=== PATIENT | male | born 2000 | race American Indian/Alaskan Native ===

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

== ENCOUNTER 2019-04-27 17:52 | Emergency (ER) | payer SELFPAY ==
[2019-04-27] MEDS ORDERED: IBUPROFEN 600 MG TAB PO ONE (18:01)
--- NOTE | 2019-04-27 18:03 | Emergency Department Report ---
Blank Doc - Documentation Documentation: 19-year-old male that presents with sore throat, URI symptoms and fever. This initial assessment/diagnostic orders/clinical plan/treatment(s) is/are subject to change based on patient's health status, clinical progression and re- assessment by fellow clinical providers in the ED. Further treatment and workup at subsequent clinical providers discretion. Patient/guardians urged not to elope from the ED as their condition may be serious if not clinically assessed and managed. Initial orders include: 1- Patient sent to [facility] for further evaluation and treatment 2- CXR 3- strep 4-motrin-RN to repeat vitals
--- NOTE | 2019-04-27 18:33 | XRay Report ---
CHEST 2 VIEWS INDICATION / CLINICAL INFORMATION: cough. COMPARISON: None available. FINDINGS: SUPPORT DEVICES: None. HEART / MEDIASTINUM: No significant abnormality. LUNGS / PLEURA: No significant pulmonary or pleural abnormality. No pneumothorax. ADDITIONAL FINDINGS: No significant additional findings. IMPRESSION: 1. No acute findings. Signer Name: Raymon Mcnulty MD Signed: 04/27/2019 6:28 PM Workstation Name: [id number]
[2019-04-27 18:39] VITALS: BP 109/58
--- NOTE | 2019-04-27 19:17 | Emergency Department Report ---
ED ENT HPI - General Chief complaint: Sore Throat Stated complaint: RUNNING A FEVER 2DAYS Time Seen by Provider: 04/27/19 18:01 Source: patient Mode of arrival: Ambulatory Limitations: No Limitations - History of Present Illness Initial comments: 19-year-old -[place] male presents to the emergency room complaining of sore throat fever and chills 2 days. Patient reports to the taken Advil which she reports only lasts about an hour. Patient reports it is worse with swallowing. Patient denies any past medical history currently takes no medi cations on a daily basis and has no known drug allergies MD complaint: sore throat Onset/Timin -: days(s) Location: throat Severity: severe Quality: burning, stabbing, sharp Consistency: constant Improves with: none Worsens with: swallowing Associated Symptoms: fever, pain with swallowing, sore throat - Related Data Previous Rx's Medication Instructions Recorded Last Taken Type Cyclobenzaprine [Flexeril] 10 mg PO QHS PRN #7 tablet 10/10/17 Unknown Rx Ibuprofen [Motrin] 600 mg PO Q8H PRN #30 tablet 10/10/17 Unknown Rx methOCARBAMOL [Robaxin TAB] 500 mg PO BID #10 tab 10/15/17 Unknown Rx Ibuprofen [Motrin 600 MG tab] 600 mg PO Q8H PRN #30 tablet 04/27/19 Unknown Rx Penicillin Vk [Veetids TAB] 250 mg PO QID #40 tablet 04/27/19 Unknown Rx Allergies Allergy/AdvReac Type Severity Reaction Status Date / Time strawberry Allergy Hives Verified 10/15/17 10:03 ED Dental HPI - General Chief complaint: Sore Throat Stated complaint: RUNNING A FEVER 2DAYS Time Seen by Provider: 04/27/19 18:01 Source: patient Mode of arrival: Ambulatory Limitations: No Limitations - Related Data Previous Rx's Medication Instructions Recorded Last Taken Type Cyclobenzaprine [Flexeril] 10 mg PO QHS PRN #7 tablet 10/10/17 Unknown Rx Ibuprofen [Motrin] 600 mg PO Q8H PRN #30 tablet 10/10/17 Unknown Rx methOCARBAMOL [Robaxin TAB] 500 mg PO BID #10 tab 10/15/17 Unknown Rx Ibuprofen [Motrin 600 MG tab] 600 mg PO Q8H PRN #30 tablet 04/27/19 Unknown Rx Penicillin Vk [Veetids TAB] 250 mg PO QID #40 tablet 04/27/19 Unknown Rx Allergies Allergy/AdvReac Type Severity Reaction Status Date / Time strawberry Allergy Hives Verified 10/15/17 10:03 ED Review of Systems ROS: Stated complaint: RUNNING A FEVER 2DAYS Other details as noted in HPI Comment: All other systems reviewed and negative ED Past Medical Hx - Past Medical History Previous Medical History?: No - Surgical History Past Surgical History?: No - Social History Smoking Status: Never Smoker Substance Use Type: None - Medications Home Medications: Home Medications Medication Instructions Recorded Confirmed Last Taken Type Cyclobenzaprine [Flexeril] 10 mg PO QHS PRN #7 tablet 10/10/17 Unknown Rx Ibuprofen [Motrin] 600 mg PO Q8H PRN #30 tablet 10/10/17 Unknown Rx methOCARBAMOL [Robaxin TAB] 500 mg PO BID #10 tab 10/15/17 Unknown Rx Ibuprofen [Motrin 600 MG tab] 600 mg PO Q8H PRN #30 tablet 04/27/19 Unknown Rx Penicillin Vk [Veetids TAB] 250 mg PO QID #40 tablet 04/27/19 Unknown Rx ED Physical Exam - General Limitations: No Limitations General appearance: alert, in no apparent distress - Head Head exam: Present: atraumatic, normocephalic - Eye Eye exam: Present: normal appearance - ENT ENT exam: Present: mucous membranes moist - Expanded ENT Exam Expanded Throat exam: Positive: tonsillar erythema, tonsillomegaly, tonsillar exudate - Neck Neck exam: Present: tenderness, lymphadenopathy - Respiratory Respiratory exam: Present: normal lung sounds bilaterally. Absent: respiratory distress - Neurological Exam Neurological exam: Present: alert, oriented X3, normal gait - Psychiatric Psychiatric exam: Present: normal affect, normal mood - Skin Skin exam: Present: warm, dry, intact, normal color. Absent: rash ED Course Vital Signs 04/27/19 04/27/19 18:36 18:37 Temperature 102.3 F H Pulse Rate 101 H Respiratory 18 18 Rate Blood Pressure 109/58 O2 Sat by Pulse 100 Oximetry ED Medical Decision Making - Radiology Data Radiology results: report reviewed Patient: KURT GUEVARA MR#: [id number] : 2000 Acct:[id number] Age/Sex: 19 / M ADM Date: 04/27/19 Loc: ED Attending Dr: Ordering Physician: GIOVANI SALGADO NP Date of Service: 04/27/19 Procedure(s): XR chest routine 2V Accession Number(s): [id number] cc: GIOVANI SALGADO NP Fluoro Time In Minutes: CHEST 2 VIEWS INDICATION / CLINICAL INFORMATION: cough. COMPARISON: None available. FINDINGS: SUPPORT DEVICES: None. HEART / MEDIASTINUM: No significant abnormality. LUNGS / PLEURA: No significant pulmonary or pleural abnormality. No pneumothorax. ADDITIONAL FINDINGS: No significant additional findings. IMPRESSION: 1. No acute findings. Signer Name: Raymon Mcnulty MD Signed: 04/27/2019 6:28 PM Workstation Name: [id number] Transcribed By: JM Dictated By: Raymon Mcnulty MD Electronically Authenticated By: Raymon Mcnulty MD Signed Date/Time: 04/27/191827 DD/ 27 TD/TT: - Medical Decision Making 19-year-old -[place] male presents to the emergency room complaining of sore throat fever and chills 2 days. Patient reports to the taken Advil which she reports only lasts about an hour. Patient reports it is worse with swallowing. Patient denies any past medical history currently takes no medications on a daily basis and has no known drug allergies Critical care attestation.: If time is entered above; I have spent that time in minutes in the direct care of this critically ill patient, excluding procedure time. ED Disposition Clinical Impression: Acute pharyngitis Disposition: DC-01 TO HOME OR SELFCARE Is pt being admited?: No Does the pt Need Aspirin: No Condition: Stable Instructions: Pharyngitis (ED) Prescriptions: Ibuprofen [Motrin 600 MG tab] 600 mg PO Q8H PRN #30 tablet PRN Reason: Pain Penicillin Vk [Veetids TAB] 250 mg PO QID #40 tablet Referrals: [facility] [Outside] - 3-5 Days
== END 2019-04-27 20:00 | disposition home or self-care (01) ==
LOC: ED 17:52
DX: J02.9 Acute pharyngitis, unspecified (principal); Z79.899 Other long term (current) drug therapy; Z91.018 Allergy to other foods
CPT/HCPCS: 71046